=== PATIENT | female | born 1980 | race Caucasian/White ===

== ENCOUNTER 2021-07-19 20:08 | Emergency (ER) | payer BC ==
--- NOTE | 2021-07-19 21:21 | EDM.PDOC ---
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 She experienced a spell at about noon,and now has residual headache,numbness of the face and mild shortness of breath. She has a a h/o Migraine Headaches,but his feels different. Denies any other systemic side effects - Related Data Allergies Allergy/AdvReac Type Severity Reaction Status Date / Time metoclopramide [From Reglan] Allergy Cannot Verified 07/19/21 20:33 Remember Home Meds: Home Meds lisinopriL [Lisinopril] 10 mg PO DAILY 07/19/21 [History] ED ROS GENERAL - Review of Systems Review Of Systems: Comprehensive ROS is negative, except as noted in HPI. ED EXAM, NEURO - Physical Exam Exam: See Below Exam Limited By: No Limitations General Appearance: Alert, WD/WN, No Apparent Distress Ears: Normal External Exam, Normal Canal, Hearing Grossly Normal, Normal TMs Nose: Normal Inspection, Normal Mucosa, No Blood Throat/Mouth: Normal Inspection, Normal Lips, Normal Teeth, Normal Gums, Normal Oropharynx, Normal Voice, No Airway Compromise Head Exam: Atraumatic, Normocephalic Neck: Normal Inspection, Supple, Non-Tender, Full Range of Motion Respiratory/Chest: No Respiratory Distress, Lungs Clear, Normal Breath Sounds, No Accessory Muscle Use, Chest Non-Tender Cardiovascular: Normal Peripheral Pulses, Regular Rate, Rhythm, No Edema, No Gallop, No JVD, No Murmur, No Rub GI/Abdominal: Normal Bowel Sounds, Soft, Non-Tender, No Organomegaly, No Distention, No Abnormal Bruit, No Mass (Female) Exam: Normal External Exam, Normal Speculum Exam, Normal Bimanual Exam Rectal (Female) Exam: Normal Exam, Normal Rectal Tone Neurological: Alert, Normal Mood/Affect, Normal Dorsiflexion, CN II-XII Intact, Normal Plantar Flexion, Normal Gait, Normal Reflexes, No Motor/Sensory Deficits, Oriented x 3 Back Exam: Normal Inspection, Full Range of Motion, NT Extremities: Normal Inspection, Normal Range of Motion, Non-Tender, No Pedal Edema, Normal Capillary Refill Psychiatric: Normal Affect, Normal Mood Skin Exam: Warm, Dry, Intact, Normal Color, No Rash #1 Interpretation EKG Date: 07/19/21 Rhythm: NSR [place]: Normal P-Wave: Present QRS: Normal Comparison: NA - No Prior EKG Course - Vital Signs Last Recorded V/S: Last Vital Signs Temp 98.6 F 07/19/21 20:10 Pulse 78 07/19/21 20:10 Resp 18 07/19/21 20:10 BP 130/94 H 07/19/21 20:10 Pulse Ox 98 07/19/21 20:10 Departure - Departure Time of Disposition: 20:24 Disposition: Home, Self-Care 01 Condition: Good Clinical Impression: Vertigo, Headache - Discharge Information Instructions: Vertigo, [facility] Referrals: PCP,None [Primary Care Provider] - 07/21/21 Forms: ED Department Discharge - Problem List & Annotations (1) Vertigo SNOMED Code(s): 691426997 Code(s): R42 - DIZZINESS AND GIDDINESS Status: Acute (2) Headache SNOMED Code(s): 53573279 Code(s): R51.9 - HEADACHE, UNSPECIFIED Status: Acute - Problem List Review Problem List Initiated/Reviewed/Updated: Yes - Assessment/Plan Plan: CT brain and EKG were normal. I offered Toradol,but she declined. DC home. Probably BPPV or Migraine
== END 2021-07-19 21:40 | disposition home or self-care (01) ==
LOC: FB.ED 20:08
DX: R42 Dizziness and giddiness (principal); R51.9 Headache, unspecified; Z88.8 Allergy status to other drugs, medicaments and biological substances
CPT/HCPCS: 70450; 93005; 99284-25